=== PATIENT | female | born 1975 | race Caucasian/White ===

== ENCOUNTER 2024-01-14 17:52 | Outpatient (REF) | payer OTHER, SELFPAY ==
[2024-01-15 23:59] LABS: C. trachomatis RNA TMA NOT DETECTED (NOT DETECTED); N. gonorrhoeae RNA TMA NOT DETECTED (NOT DETECTED)
[2024-01-20 20:28] LABS: C. trachomatis RNA TMA NOT DETECTED (NOT DETECTED); N. gonorrhoeae RNA TMA NOT DETECTED (NOT DETECTED); Trichomonas (NAAT) NOT DETECTED (NOT DETECTED)
[2024-01-21 03:29] LABS: HPV mRNA E6/E7 rflx Not Detected (Not Detected)
== END 2024-01-14 17:53 | disposition home or self-care (01) ==
LOC: HO.HHCLNP 17:52
PROVIDERS: Visit Provider Family Medicine
DX: N95.0 Postmenopausal bleeding (principal)
CPT/HCPCS: 36415; 81513; 87491; 87591; 87624; 87661; 88142

== ENCOUNTER 2024-02-10 10:53 | Outpatient (AMB) | payer OTHER, SELFPAY ==
[2024-02-10 10:33] VITALS: BP 130/90; PULSE 84; O2SAT 97; BMI 29.3
--- NOTE | 2024-02-10 10:33 | HO.NEPHOV_ITS ---
Vital Signs 02/10/24 10:33 Height 5 ft 2 in Weight 160 lb BMI 29.3 BP 130/90 H Blood Pressure Location Rt brachial Position Sitting Pulse 84 Pulse Source Pulse Oximeter Pulse Oximetry (%) 97 Oxygen Delivery Method Room Air Intake Visit Reasons: CKD/ Confirmed Intellectual Property Lawyer Required: No Accompanied by: Self / Same As Patient Allergies morphine [Morphine] Allergy (Unknown, Verified 02/10/24 10:37) ITCH POWDER IN GLOVES Allergy (Unknown, Uncoded 07/06/20 17:51) HIVES HPI Comments Details: 48-year-old woman referred for renal evaluation. Recently she had flank pain and was diagnosed with UTI. She was given antibiotics but she did not take the medication because the pill was too big. She had a ultrasonogram at [facility] recently. She is history of nephrolithiasis she has had at least 3 stones. She would undergone workup for nephrolithiasis. She used to drink about 2 L of Coke every day. She is recently cut back. She smokes marijuana nightly. No specific complaints today. No dysuria urgency. No hematuria. No nausea or vomiting. No shortness of breath. No edema no rash. All systems were reviewed [facility], [facility] Surgical History H/O rhinoplasty (~08/2022) Social History (Updated 02/10/24 @ 10:38 by Heather Manuel) Patient Tobacco Use Status: Never used Tobacco Substance Use Type: Marijuana Physical Exam Vital Signs: Last Vital Signs Pulse 84 02/10/24 10:33 BP 130/90 H 02/10/24 10:33 Pulse Ox 97 02/10/24 10:33 Oxygen Delivery Method Room Air 02/10/24 10:33 BMI result Body Mass Index 29.3 Const General: comfortable Nutritional Appearance: well nourished Orientation/consciousness: patient oriented x3 HEENT Head: No normal to inspection Mouth: moist mucous membranes Neck Neck: Yes supple and Yes no JVD Resp Auscultation: clear to auscultation bilaterally, no rales and rub present Cardio Jugular venous distension: no JVD Palpation: no palpable S3 and no palpable S4 Heart sounds: no rubs GI Palpation (GI): Soft to palpation and nontender Percussion: No Fluid wave present General: Yes no CVA tenderness Back/Spine/Pelvis Back: no CVA tenderness Skin General skin exam: no rashes or lesions noted Neuro General: patient oriented x3 Extrem General: Yes no pedal edema and No clubbing Results Reviewed Nephrology Results: Hgb 14.0 g/dL (12.0-16.0) 08/11/18 WBC 11.7 X10*3/uL (4.8-10.8) H 08/11/18 Plt Count 213 X10*3/uL (160-400) 08/11/18 Sodium 143 MMOL/L (135-145) 08/11/18 Potassium 5.0 MMOL/L (3.3-5.1) 08/11/18 Chloride 107 MMOL/L (96-108) 08/11/18 BUN 7 MG/DL (9-16) L 08/11/18 Creatinine 0.75 MG/DL (0.5-1.4) 08/11/18 Calcium 9.8 MG/DL (8.4-10.2) 08/11/18 Assessment & Plan Assessment & Plan (1) Nephrolithiasis: Code(s): N20.0 - Calculus of kidney Category: Medical Plan Middle-aged woman with history of nephrolithiasis and recent UTI. Workup initiated further nephrolithiasis including a 24 urine collection. Since the UTI was incompletely treated I will recheck urine culture. She had trace protein by dipstick. We will recheck urinalysis and urine protein creatinine ratio. If she has significant proteinuria we will proceed with further workup. In the meantime encouraged her to increase her fluid intake. She should stay on low-sodium diet. Encouraged to limit or avoid Coke. Orders: Orders Oxalate, 24 Hr Today N20.0 - Calculus of kidney UA and rflx microscopic Today N20.0 - Calculus of kidney Sodium, 24Hr Urine Group Today N20.0 - Calculus of kidney Creatinine, 24 Hr Group Today N20.0 - Calculus of kidney Calcium, 24 Hr Ur Today N20.0 - Calculus of kidney Citric Acid 24hr Urine Today N20.0 - Calculus of kidney Uric Acid, 24Hr Urine Group Today N20.0 - Calculus of kidney Urine Culture Today N20.0 - Calculus of kidney Coding Level of Care Code New Pt Level 4 (56908) Diagnoses Nephrolithiasis N20.0
--- OUTSIDE RECORDS SUMMARY | 2024-02-10 10:54 | XMS_ITS | Continuity of Care Document ---
Author Organization [facility] See farhana Address [address] [place] [address] [address] [place] [address]- Care Team Providers Care Grips Name Role Phone Leila Osman MD Primary Care Physician [phone] Encounter [facility] [place] Date(s): 09/14/19 - 12/19/19 [facility] [address] [place] [address]- [facility] Attending Physician: Papito Griffin MD Referring Physician: Leila Osman MD Allergies, Adverse Reactions, Alerts Substance Reaction Severity Status morphine Active Latex Active Immunizations Not Given Vaccine Date Status Refusal Reason pneumococcal 23-valent vaccine 02/18/14 Not Given Patient Refuses Medications Keflex monohydrate 500 mg oral capsule 1 capsule = 500 mg, By Mouth, Every 12 hours, 0 Refills, Maintenance, 07/22/19 13:11:25 EDT, Capsule Start Date: 07/22/19 Stop Date: 07/27/19 Status: Ordered Lopressor 50 mg oral tablet 50 mg, 1, tablet, By Mouth, 2 times a day, # 60 tablet, Refills 1, Tot. Refills 1, Maintenance, 05/25/16 15:11:07, Route to Pharmacy Electronically, [id number][facility] [id number] Start Date: 05/25/16 Stop Date: 07/24/16 Status: Ordered LORazepam 1 mg oral tablet 1 tablet = 1 mg, By Mouth, 3 times a day, PRN for anxiety, 0 Refills, Maintenance, 05/23/16 20:01:30, Tablet Start Date: 05/23/16 Status: Ordered risperiDONE 3 mg oral tablet 3 mg, 1, tablet, By Mouth, 2 times a day, # 60 tablet, Refills 0, Maintenance, 05/23/16 20:01:10 Start Date: 05/23/16 Status: Ordered sertraline 50 mg oral tablet 1 tablet = 50 mg, By Mouth, Daily, # 30 tablet, 0 Refills, Maintenance, 10/07/19 21:25:00 EST, Tablet Start Date: 10/07/19 Status: Ordered Problem List Condition Effective Dates Status Health Status Inform ant CKD (chronic kidney disease)(Confirmed) Active
--- OUTSIDE RECORDS SUMMARY | 2024-02-10 10:54 | XMS_ITS | Continuity of Care Document ---
Author Organization [facility] See farhana Address [address] [place] [address] [address] [place] [address]- Care Team Providers Care Ups Driver Name Role Phone Leila Osman MD Primary Care Physician [phone] Encounter [facility] [place] Date(s): 10/08/22 - 11/07/22 [facility] [address] [place], [place] [address] Attending Physician: Blanche Escalona Admitting Physician: AdmtrBlanche Referring Physician: Admtr, Ar8 Allergies, Adverse Reactions, Alerts Substance Reaction Severity Status morphine Active Latex Active Immunizations Not Given Vaccine Date Status Refusal Reason pneumococcal 23-valent vaccine 02/18/14 Not Given Patient Refuses Medications albuterol CFC free 90 mcg/inh inhalation aerosol 2, puffs, Inhalation, 4 times a day, PRN, # 75 Gm, Refills 0, Maintenance, 09/16/22 9:51:00 EST, Aerosol Start Date: 09/16/22 Status: Ordered LORazepam 1 mg oral tablet 1 tablet = 1 mg, By Mouth, 3 times a day, PRN for anxiety, 0 Refills, Maintenance, 05/23/16 20:01:30, Tablet Start Date: 05/23/16 Status: Ordered Saline Mist 0.65% nasal spray 2 sprays, Nares, Both, 4 times a day, # 1 each, 3 Refills, Maintenance, 09/18/22 11:21:00 [facility] #[id number], Partial fill upon patient request if the prescription is for a schedule II opioid drug., 2 sprays Nares, Both 4 times a day, 15... Start Date: 09/18/22 Status: Ordered Problem List Condition Confirmation Course Effective Dates Status Health St atus Informant CKD (chronic kidney disease) Confirmed Active Obese class I Confirmed Active Social History Social History Type Response Smoking Status Never (less than 100 in lifetime) entered on: 06/21/20 Sex Implantable Device List Procedure Provider Procedure Date Device Type Site Graft Cartilage Papito Griffin MD 09/18/22 Unknown N ose Device Identifier Serial Number Lot or Batch Number Manufacturing Date Expiration Date Distinct Identification Code MRI Safety Implantable Status Assigning Authority Unknown [id number] Unknown Unknown 12/24/25 Unknown Unknown Active Unknown Patient Care team information Care Team Personnel Name: Sarah Ledezma RN Position: [facility] RN Member Role: Primary Care Nurse Name: Sarah Jaramillo RN Position: [facility] ED RN W/OE and Tasks Member Role: Primary Care Nurse Name: Enma Zamorano RN Position: [facility] RN Member Role: Primary Care Nurse Name: Ivett Myers NP Position: [facility] Associate Professional Member Role: Primary Care Nurse Address: Address: [address] [place] [address]- [place] Name: Olvin Leung DO Position: [facility] Renal MD Member Role: Lifetime Consulting Physician Address: Address: [address] [place], [place] [address] [place] [address]- [place] Name: Bell Ortiz RN Position: [facility] SN RN Member Role: Primary Care Nurse Name: Aileen Leija Position: [facility] RN Member Role: Primary Care Nurse Name: Salma Braden RN Position: [facility] RN Member Role: Primary Care Nurse Name: Leila Osman MD Position: [facility] Outreach Member Role: PCP Address: Address: [address] [place] [address]- [place] Name: Stephani Infante RN Position: [facility] Hospital Family Services Manager Member Role: Primary Care Nurse Care Team Related Persons Name: DORI NICK Address: home [address] [place] [address] Name: ROWDY KENYON Address: home [address] [place] [address]
--- OUTSIDE RECORDS SUMMARY | 2024-02-10 10:54 | XMS_ITS | Continuity of Care Document ---
Author Organization [facility] Address [address] [place] [address]- Care Team Providers Care Extension Course Coordinator Name Role Phone Leila Osman MD Primary Care Physician [place] [facility] [place] 10/08/[address] [address]- [facility] Discharge Disposition: A-D/C Walkout Attending Physician: Not on Staff, Attending MD Admitting Physician: Not on Staff, Admitting MD Referring Physician: Not on Staff, Referring MD Allergies, Adverse Reactions, Alerts Substance Reaction [...] Maintenance, 05/25/16 15:11:07, Route to Pharmacy Electronically, [id number], [facility] [id number] Start Date: 05/25/16 Stop Date: 07/24/16 Status: [...] Inform ant CKD (chronic kidney disease)(Confirmed) Active Vital Signs Most recent to oldest [Reference Range]: 1 2 Weight 88.9 kg (10/07/19 9:22 PM) 88.9 kg (10/07/19 9:18 PM) Oxygen Saturation [94-100 %] 100 % (10/07/19 9:18 PM) Pulse Rate [55-90 bpm] 93 bpm *H* (10/07/19 9:18 PM) Blood Pressure [90-138/55-84 mm Hg] 144/ 91mm Hg *H* (10/07/19 9:18 PM) Respiratory Rate [16-30 br/min] 20 br/mi n (10/07/19 9:18 PM) Temperature [96.8-100.4 DegF] 98.2 DegF (10/07/19 9:18 PM) Mode of Delivery (Oxygen) Room air (10/07/19 9:18 PM) Blood pressure sites Arm, left (10/07/19 9:18 PM) Temperature Route Oral (10/07/19 9:18 PM) Dry Weight 88.9 kg (10/07/19 9:22 PM) 88.9 kg (10/07/19 9:18 PM) Weight Obtained Via Standing scale (10/07/19 9:18 PM) Dry Weight Obtained Via Standing scale (10/07/19 9:18 PM)
--- OUTSIDE RECORDS SUMMARY | 2024-02-10 10:54 | XMS_ITS | Continuity of Care Document ---
Author Organization [facility] See [facility] Address [address] [place] [address] [address] [place] [address]- Care Team Providers Care Wire Coating Operator Metal Name Role Phone Leila Osman MD Primary Care Physician Encounter [facility] Date(s): 06/10/22 - 07/10/22 [facility] [address] [place], [place] [address] Allergies, Adverse Reactions, Alerts Substance Reaction Severity Status morphine Active Latex Active Immunizations Not Given Vaccine Date Status Refusal Reason pneumococcal 23-valent vaccine 02/18/14 Not Given Patient Refuses Medications Ambien 5 mg oral tablet 1 tablet = 5 mg, By Mouth, Daily at bedtime, 0 Refills, Maintenance, 05/10/22 11:31:00 EDT, Partialfill upon patient request if the prescription is for a schedule II opioid drug. Start Date: 05/10/22 Status: Ordered LORazepam 1 mg oral tablet 1 tablet = 1 mg, By Mouth, 3 times a day, PRN for anxiety, 0 Refills, Maintenance, 05/23/16 20:01:30, Tablet Start Date: 05/23/16 Status: Ordered sertraline 50 mg oral tablet 1 tablet = 50 mg, By Mouth, Daily, # 30 tablet, 0 Refills, Maintenance, 10/07/19 21:25:00 EST, Tablet Start Date: 10/07/19 Status: Ordered Trazodone By Mouth, 2 times a day, 0 Refills, Maintenance, 08/25/21 6:58:00 EDT, Partial fill upon patient request if the prescription is for a schedule II opioid drug. Start Date: 08/25/21 Status: Ordered Zoloft 25 mg oral tablet 1 tablet = 25 mg, By Mouth, Daily, 0 Refills, Maintenance, 05/10/22 11:31:00 EDT, Partial fill uponpatient request if the prescription is for a schedule II opioid drug. Start Date: 05/10/22 Status: Ordered Problem List Condition Effective Dates Status Health Status Inform ant CKD (chronic kidney disease)(Confirmed) Active Obese class I(Confirmed) Active Social History Social History Type Response Smoking Status Never (less than 100 in lifetime) entered on: 06/21/20 Sex Care Team Personnel Name: Leila Osman MD Address: [address] [place] [address]
--- OUTSIDE RECORDS SUMMARY | 2024-02-10 10:54 | XMS_ITS | Continuity of Care Document ---
Author Organization [facility] See farhana Address [address] [place] [address] [address] [place] [address]- Care Team Providers Care Account Manager Forest Service Name Role Phone Leila Osman MD Primary Care Physician Encounter [facility] Date(s): 08/21/22 - 09/20/22 [facility] [address] [place], [place] [address] Allergies, Adverse Reactions, Alerts Substance Reaction Severity Status morphine Active Latex Active Immunizations Not Given Vaccine Date Status Refusal Reason pneumococcal 23-valent vaccine 02/18/14 Not Given Patient Refuses Medications albuterol CFC free 90 mcg/inh inhalation aerosol 2, puffs, Inhalation, 4 times a day, PRN, # 75 Gm, Refills 0, Maintenance, 09/16/22 9:51:00 EST, Aerosol Start Date: 09/16/22 Status: Ordered Augmentin 875 mg-125 mg oral tablet 1 tablet, By Mouth, Every 12 hours, for 10 days, # 20 tablet, 0 Refills, Acute 09/28/22 11:23:00 EST, 09/18/22 11:23:00 EST, Tablet, [facility] #[id number], Partial fill upon patient request if the prescription is for a schedule II opioid drug.,... Start Date: 09/18/22 Stop Date: 09/28/22 Status: Ordered ibuprofen 600 mg oral tablet 600 mg, 1, tablet, By Mouth, Every 6 hours, not to exceed 3200 mg/day with food or milk, # 40 tablet, Refills 0, Tot. Refills 0, Acute 09/25/22 17:00:00 EST, 09/18/22 11:22:00 EST, Route to Pharmacy Electronically, [facility] #[id number], [place]... Start Date: 09/18/22 Stop Date: 09/25/22 Status: Ordered LORazepam 1 mg oral tablet 1 tablet = 1 mg, By Mouth, 3 times a day, PRN for anxiety, 0 Refills, Maintenance, 05/23/16 20:01:30, Tablet Start Date: 05/23/16 Status: Ordered oxyCODONE 5 mg oral tablet 5 mg, 1, tablet, By Mouth, Every 6 hours, PRN, # 12 tablet, Refills 0, Tot. Refills 0, Acute 09/25/22 17:00:00 EST, for pain, 09/18/22 11:22:00 EST, Route to Pharmacy Electronically, [facility] #[id number], Partial fill upon patient request if th... Start Date: 09/18/22 Stop Date: 09/25/22 Status: Ordered Saline Mist 0.65% nasal spray 2 sprays, Nares, Both, 4 times a day, # 1 each, 3 Refills, Maintenance, 09/18/22 11:21:00 EST, [facility] #[id number], Partial fill upon patient request if the prescription is for a schedule II opioid drug., 2 sprays Nares, Both 4 times a day, 15... Start Date: 09/18/22 Status: Ordered Tylenol 325 mg oral capsule 2 capsule = 650 mg, By Mouth, Every 6 hours, PRN as needed for fever, not to exceed 4000 mg/day, # 40 capsule, 0 Refills, Acute 09/25/22 17:00:00 EST, 09/18/22 11:23:00 EST, Capsule, [facility] #[id number], Partial fill upon patient request if th... Start Date: 09/18/22 Stop Date: 09/25/22 Status: Ordered Problem List Condition Confirmation Course [...] MRI Safety Implantable Status Assigning Authority Unknown [id number] Unknown Unknown 12/24/25 Unknown Unknown Active Unknown Patient Care team information Care Team Personnel Name: Sarah Ledezma RN Position: [facility] RN Member Role: Primary Care Nurse Name: Sarah Jaramillo RN Position: [facility] ED RN W/OE and Tasks Member Role: Primary Care Nurse Name: Enma Zamorano RN Position: [facility] RN Member Role: Primary Care Nurse Name: Ivett Myers NP Position: [facility] Associate Professional Member Role: Primary Care Nurse Address: Address: [address] [place] [address]- [place] Name: Olvin Leung DO Position: [facility] Renal MD Member Role: Lifetime Consulting Physician Address: Address: [address] [place] [address] [address] [facility] [place] [address]- [place] Name: Bell Ortiz RN Position: [facility] SN RN Member Role: Primary Care Nurse Name: Aileen Leija Position: [facility] RN Member Role: Primary Care Nurse Name: Salma Braden RN Position: [facility] RN Member Role: Primary Care Nurse Name: Leila Osamn MD Position: [facility] Outreach Member Role: PCP Address: Address: [address] [place] [address]- [place] Name: Stephani Infante RN Position: [facility] Hospital Yard Assistant Member Role: Primary Care Nurse Care Team Related Persons Name: DORI NICK Address: home [address] [place] [address] Name: ROWDY KENYON Address: [address] [place] [address]
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
--- OUTSIDE RECORDS SUMMARY | 2024-02-10 10:55 | XMS_ITS | Continuity of Care Document ---
Author Organization [facility] Address [address] [place] [address]- Care Team Providers Care Imaging Analyst Name Role Phone Leila Osman MD Primary Care Physician Encounter [facility] Date(s): 12/28/23 - 12/29/[address] [address]- Discharge Disposition: A-D/C Home Attending Physician: Mando Faustin DO Admitting Physician: Mando Faustin DO Referring Physician: Not on Staff, Referring MD Allergies, Adverse Reactions, Alerts Substance Reaction Severity Status morphine Active Latex Active Medications albuterol CFC free 90 mcg/inh inhalation aerosol 2, puffs, Inhalation, 4 times a day, PRN, # 75 Gm, Refills 0, Maintenance, 09/16/22 9:51:00 EST, Aerosol Start Date: 09/16/22 Status: Ordered LORazepam 1 mg oral tablet 1 tablet = 1 mg, By Mouth, 3 times a day, PRN for anxiety, 0 Refills, Maintenance, 05/23/16 20:01:30, Tablet Start Date: 05/23/16 Status: Ordered Motrin Tablet 600 mg, Tablet, By Mouth, Once, STAT, 12/28/23 21:14:00 EDT, Stop date 12/28/23 21:14:00 EDT Start Date: 12/28/23 Stop Date: 12/28/23 Status: Completed Percocet-5/325 325 mg-5 mg oral tablet 3 tablet, Tablet, By Mouth, On Discharge for 7 days, STAT, 12/29/23 0:14:00 EDT, Stop date :13:00 EDT Start Date: 12/29/23 Stop Date: 12/29/23 Status: Completed Saline Mist 0.65% nasal spray 2 sprays, Nares, Both, 4 times a day, # 1 each, 3 Refills, Maintenance, 09/18/22 11:21:00 [id number], Partial fill upon patient request if the prescription is for a schedule II opioid drug., 2 sprays Nares, Both 4 times a day, 15... Start Date: 09/18/22 Status: Ordered Problem List Condition Confirmation Course Effective Dates Status Health St [facility] Informant CKD (chronic kidney disease) Confirmed Active Results Radiology Reports * Exam Date Time Procedure Performing Provider Status 12/28/23 9:26 PM Knee 1 or 2 Views Left GrodzickMaria T harding ta; Auth (Verified) Notes: (Knee 1 or 2 Views Left) Reason For Exam: Pain RESULT: Knee 1 or 2 Views Left Knee 1 or 2 Views Left Hx of Present Illness: Pt c o L knee pain since this morning. Denies swelling. No hx of dvt. deniestrauma or injuries.; Reason: Pain; Clinical Question(s): Fracture COMPARISON: None. FINDINGS: There is no evidence of acute or healing fracture, dislocation or bone lesion. No arthritic changes. No osteochondral defects or intra-articular loose bodies. No evidence of joint effusion. IMPRESSION: No acute osseous abnormality. WSN: [id number] Ordering Physician: Etta Flood Dictated By: Olvin Cowan MD Dictated Date/Time: 12/28/23 10:00 p Reviewed By: Olvin Cowan MD Signed By: Olvin Cowan MD Signed Date/Time: 12/28/23 10:00 pm Transcribed By: KB Transcribed Date/Time: 12/28/23 10:00 pm Vital Signs Most recent to oldest [Reference Range]: 1 2 3 Height 158 cm (12/29/23 12:36 AM) 158 cm (12/28/23 8:36 PM) Weight 74.8 kg (12/29/23 12:36 AM) 74.8 kg (12/28/23 8:36 PM) Oxygen Saturation [94-100 %] 100 % (12/29/23 12:36 AM) 99 % (12/28/23 8:36 PM) Pulse Rate [55-90 bpm] 64 bpm (12/29/23 12:36 AM) 85 bpm (12/28/23 8:36 PM) Body Mass Index [18.5-24.99 kg/m2] 29.96 kg/m2 *H* (12/29/23 12:36 AM) Blood Pressure [90-138/55-84 mm Hg] 120/92mm Hg (12/29/23 12:36 AM) 121/84mm Hg (12/28/23 8:36 PM) Respiratory Rate [16-30 br/min] 22 br/min (12/29/23 12:36 AM) 22 br/min (12/29/23 12:25 AM) 22 br/min (12/28/23 10:18 PM) Temperature [96.8-100.4 DegF] 97.7 DegF (12/29/23 12:36 AM) 97.1 DegF (12/28/23 8:36 PM) Mode of Delivery (Oxygen) Room air (12/29/23 12:36 AM) Room air (12/28/23 8:36 PM) Blood pressure sites Arm, left (12/29/23 12:36 AM) Arm, left (12/28/23 8:36 PM) Temperature Route Oral (12/29/23 12:36 AM) Temporal (12/28/23 8:36 PM) Dry Weight 74.8 kg (12/29/23 12:36 AM) 74.8 kg (12/28/23 8:36 PM) Dry Weight Obtained Via Standing scale (12/28/23 8:36 PM) Social History Social History Type Response Smoking Status Never (less than 100 in lifetime) entered on: 06/21/20 Sex Implantable Device List Procedure Provider Procedure Date Device Type Site Graft Cartilage Papito Griffin MD 09/18/22 Unknown N ose Device Identifier Serial Number Lot or Batch Number Manufacturing Date Expiration Date Distinct Identification Code MRI Safety Implantable Status Assigning Authority Unknown [id number] Unknown Unknown 12/24/25 Unknown Unknown Active Unknown Patient Care team information Care Team Personnel Name: Sarah Ledezma RN Position: S RN Member Role: Primary Care Nurse Name: Sarah Jaramillo RN Position: [facility] KATHY RN W/OE and Tasks Member Role: Primary Care Nurse Name: Bell Mathur RN Position: [facility] Rad RN Member Role: Primary Care Nurse Name: Ivett Myers NP Position: [facility] Associate Professional Member Role: Primary Care Nurse Address: Address: [address] [place] [address]- [place] Name: Olvin Leung DO Position: [facility] Renal MD Member Role: Lifetime Consulting Physician Address: Address: [address] [facility] [address] [facility] [place] [address]- [place] Name: Aileen Leija Position: [facility] RN Member Role: Primary Care Nurse Name: Salma Braden RN Position: [facility] RN Member Role: Primary Care Nurse Name: Leila Osman MD Position: [facility] Outreach Member Role: PCP Address: Address: [address] [place] [address]- [place] Name: Stephani Infante RN Position: [facility] Television Operator Member Role: Primary Care Nurse Care Team Related Persons Name: DORI NICK Address: home [address] [place] [address] Name: ROWDY KENYON Address: home [address] [place] [address]
--- OUTSIDE RECORDS SUMMARY | 2024-02-10 10:55 | XMS_ITS | Continuity of Care Document ---
Author Organization [facility] Address [address] [place] [address] [address] [place] [address]- Care Team Providers Care Chemical Supervisor Name Role Phone Leila Osman MD Primary Care Physician Encounter [facility] Date(s): 09/17/22 - 01/15/23 [facility] [address] [place], [place] [address] Attending Physician: Papito Griffin MD Allergies, Adverse Reactions, Alerts Substance Reaction [...] 1 each, 3 Refills, Maintenance, 09/18/22 11:21:00 [facility] #[id number], Partial fill upon patient request if the [...] MRI Safety Implantable Status Assigning Authority Unknown [id number] Unknown Unknown 12/24/25 Unknown Unknown Active Unknown Patient Care team information Care Team Personnel Name: Sarah Ledezma RN Position: [facility] RN Member Role: Primary Care Nurse Name: Sarah Jaramillo RN Position: [facility] ED RN W/OE and Tasks Member Role: Primary Care Nurse Name: Bell Mathur RN Position: [facility] Rad RN Member Role: Primary Care Nurse Name: Enma Zamorano RN Position: [facility] RN Member Role: Primary Care Nurse Name: Ivett Myers NP Position: [facility] Associate Professional Member Role: Primary Care Nurse Address: Address: [address] [place] [address]- [place] Name: Olvin Leung DO Position: [facility] Renal MD Member Role: Lifetime Consulting Physician Address: Address: [address] [place] [address] [address] [facility] [place] [address]- [place] Name: Aileen Leija Position: [facility] RN Member Role: Primary Care Nurse Name: Salma Braden RN Position: [facility] RN Member Role: Primary Care Nurse Name: Leila Osman MD Position: [facility] Outreach Member Role: PCP Address: Address: [address] [place] [address]- [place] Name: Stephani Infante RN Position: [facility] Detective Supervisor Member Role: Primary Care Nurse Care Team Related Persons Name: DORI NICK Address: home [address] [place] [address] Name: ROWDY KENYON Address: home [address] [place] [address]
--- OUTSIDE RECORDS SUMMARY | 2024-02-10 10:55 | XMS_ITS | Continuity of Care Document ---
Author Organization [facility] Address [address] [place] [address] [address] [place] [address]- Care Team Providers Care Supervisor Statement Clerks Name Role Phone Leila Osman MD Primary Care Physician [phone] Encounter [facility] Date(s): 05/10/22 - 06/09/22 [facility] [address] [place], [place] [address] Attending Physician: Blanche Escalona Admitting Physician: AdmBlanche stern Referring Physician: Admtr ArHany Allergies, Adverse Reactions, Alerts Substance Reaction Severity [...]
--- OUTSIDE RECORDS SUMMARY | 2024-02-10 10:55 | XMS_ITS | Continuity of Care Document ---
Author Organization [facility] Address [address] [place] [address] [address] [place] [address]- Care Team Providers Care Data Scientist Name Role Phone Leila Osman MD Primary Care Physician Encounter [facility] Date(s): 11/11/22 - 12/11/[address] [place], [place] [address] Allergies, Adverse Reactions, Alerts Substance Reaction Severity [...] 1 each, 3 Refills, Maintenance, 09/18/22 11:21:00 [facility][id number], Partial fill upon patient request if the [...] MRI Safety Implantable Status Assigning Authority Unknown [id number] Unknown Unknown 12/24/25 Unknown Unknown Active Unknown Patient Care team information Care Team Personnel Name: Sarah Ledezma RN Position: [facility] RN Member Role: Primary Care Nurse Name: Sarah Jaramillo RN Position: [facility] ED RN W/OE and Tasks Member Role: Primary Care Nurse Name: Enma Zamorano RN Position: [facility] RN Member Role: Primary Care Nurse Name: Ivett Myers NP Position: [facility] Associate Professional Member Role: Primary Care Nurse Address: Address: [address] [place] [address]- [place] Name: Olvin Leung DO Position: [facility] Renal MD Member Role: Lifetime Consulting Physician Address: Address: [address] [place], [place] [address] [place] [address]- Name: Bell Ortiz RN Position: [facility] SN RN Member Role: Primary Care Nurse Name: Aileen Leija Position: [facility] RN Member Role: Primary Care Nurse Name: Salma Braden RN Position: [facility] RN Member Role: Primary Care Nurse Name: Leila Osman MD Position: [facility] Outreach Member Role: PCP Address: Address: [address] [place] [address]- [place] Name: Stephani Infante RN Position: [facility] Bulk Station Agent Member Role: Primary Care Nurse Care Team Related Persons Name: DORI NICK Address: home [address] [place] [address] Name: ROWDY KENYON Address: [address] [place] [address]
--- OUTSIDE RECORDS SUMMARY | 2024-02-10 10:55 | XMS_ITS | Continuity of Care Document ---
Author Organization [facility] Address [address] [place] [address] Dr [address] [place] [address]- Care Team Providers Care Lawn Technician Name Role Phone Leila Osman MD Primary Care Physician Encounter [facility] Date(s): 12/16/22 - 01/15/23 [facility] [address] [place], [place] [address] Attending Physician: Blanche Escalona Admitting Physician: Blanche Escalona Referring Physician: AdmtrBlanche Allergies, Adverse Reactions, Alerts Substance Reaction Severity [...] each, 3 Refills, Maintenance, 09/18/22 11:21:00 EST, [facility] #[id number], Partial fill upon patient request if the [...] MRI Safety Implantable Status Assigning Authority Unknown [id number] Unknown Unknown 12/24/25 Unknown Unknown Active Unknown Patient Care team information Care Team Personnel Name: Sarah Ledezma [facility] RN Member Role: Primary Care Nurse Name: Sarah Jaramillo RN Position: [facility] ED RN W/OE and Tasks Member Role: Primary Care Nurse Name: Bell Mathur RN Position: [facility] Rad RN Member Role: Primary Care Nurse Name: Enma Zamorano RN [facility] RN Member Role: Primary Care Nurse Name: Ivett Myers NP Position: [facility] Associate Professional Member Role: Primary Care Nurse Address: Address: [address] [place] [address]- Name: Olvin Leung DO Position: [facility] Renal MD Member Role: Lifetime Consulting Physician Address: Address: [address] [place] [address] [address] [facility] [place] [address]- Name: Aileen Leija Position[facility] RN Member Role: Primary Care Nurse Name: Salma Braden RN Position[facility] RN Member Role: Primary Care Nurse Name: Leila Osman MD Position: [facility] Outreach Member Role: PCP Address: Address: [address] [place] [address]- [place] Name: Stephani Infante RN Position: [facility] Sailing Master Member Role: Primary Care Nurse Care Team Related Persons Name: DORI NICK Address: [address] [place] [address] Name: ROWDY KENYON Address: [address] [place] [address]
--- OUTSIDE RECORDS SUMMARY | 2024-02-10 10:55 | XMS_ITS | Continuity of Care Document ---
Author Organization [facility] Address [address] [place] [address] [address] [place] [address]- Care Team Providers Care Keg Inspector Name Role Phone Leila Osman MD Primary Care Physician [phone] [place] [facility] [place] 08/05/22 - 09/04/22 [facility] [address] [place] [address]- Allergies, Adverse Reactions, Alerts Substance Reaction Severity [...] Date: 05/10/22 Status: Ordered Problem List Condition Confirmation Course Effective Dates Status Health St [facility] Informant CKD (chronic kidney disease) Confirmed Active Obese class I Confirmed Active Social History Social History Type Response Smoking Status Never (less than 100 in lifetime) entered on: 06/21/20 Sex Patient Care team information Care Team Personnel Name: Sarah Ledezma RN Position: [facility] RN Member Role: Primary Care Nurse Name: Sarah Jaramillo RN Position: [facility] ED RN W/OE and Tasks Member Role: Primary Care Nurse Name: Enma Zamorano RN Position: [facility] RN Member Role: Primary Care Nurse Name: Ivett Myers NP Position: [facility] Associate Professional Member Role: Primary Care Nurse Address: Address: [address] [place] [address]- [place] Name: Olvin Leung DO Position: [facility] Renal MD Member Role: Lifetime Consulting Physician Address: Address: [address] [place], [place] [address] [place] [place] [address]- Name: Bell Ortiz RN Position: [facility] SN RN Member Role: Primary Care Nurse Name: Aileen Leija Position: [facility] RN Member Role: Primary Care Nurse Name: Salma Braden RN Position: [facility] RN Member Role: Primary Care Nurse Name: Leila Osman MD Position: [facility] Outreach Member Role: PCP Address: Address: [address] [place] [address]- [place] Name: Stephani Infante RN Position: [facility] Carpenter [employer]radle [employer] D[employer] Member Role: Primary Care Nurse Care Team Related Persons Name: DORI NICK Address: [address] [place] [address] Name: ROWDY KENYON Address: [address] [place] [address]
--- OUTSIDE RECORDS SUMMARY | 2024-02-10 10:55 | XMS_ITS | Continuity of Care Document ---
Author Organization [facility] Address [address] [place] [address] Dr [address] [place] [address]- Care Team Providers Care Director Business Name Role Phone Leila Osman MD Primary Care Physician Encounter [facility] Date(s): 06/12/22 - 07/12/22 [facility] [address] [place], [place] [address] Allergies, Adverse Reactions, Alerts Substance Reaction [...] Team Personnel Name: Leila Osman MD Address: [address] [place] [address]
--- OUTSIDE RECORDS SUMMARY | 2024-02-10 10:55 | XMS_ITS | Continuity of Care Document ---
Author Organization [facility] ter Address [address] [place] [id number]- Care Team Providers Care Granite Worker Name Role Phone Leila Osman MD Primary Care Physician Encounter [facility] [place] [facility] R [id number] Date(s): 01/18/24 - 01/19/[address] [address]- Encounter Diagnosis Pyelonephritis(Final) - 01/19/24 UTI (urinary tract infection)(Final) - 01/19/24 Discharge Disposition: A-D/C Home Attending Physician: Tracy Allen MD Admitting Physician: Tracy Allen MD Referring Physician: Not on Staff, Referring MD Allergies, Adverse Reactions, Alerts Substance Reaction Severity Status morphine Active Latex Active Medications albuterol CFC free 90 mcg/inh inhalation aerosol 2, puffs, Inhalation, 4 times a day, PRN, # 75 Gm, Refills 0, Maintenance, 09/16/22 9:51:00 EST, Aerosol Start Date: 09/16/22 Status: Ordered ciprofloxacin 500 mg oral tablet 1 tablet = 500 mg, By Mouth, Every 12 hours, for 7 days, # 14 tablet, 0 Refills, Acute 01/26/24 6:44:00 EDT, 01/19/24 6:44:00 EDT, Tablet, [id number], Partial fill upon patient request if the prescription is for a schedule II opioid d... Start Date: 01/19/24 Stop Date: 01/26/24 Status: Ordered LORazepam 1 mg oral tablet 1 tablet = 1 mg, By Mouth, 3 times a day, PRN for anxiety, 0 Refills, Maintenance, 05/23/16 20:01:30, Tablet Start Date: 05/23/16 Status: Ordered Saline Mist 0.65% nasal spray 2 sprays, Nares, Both, 4 times a day, # 1 each, 3 Refills, Maintenance, 09/18/22 11:21:00 [id number], Partial fill upon patient request if the prescription is for a schedule II opioid drug., 2 sprays Nares, Both 4 times a day, 15... Start Date: 09/18/22 Status: Ordered Problem List Condition Confirmation Course Effective Dates Status Health [facility] Informant CKD (chronic kidney disease) Confirmed Active Obese class I Confirmed Active Results Radiology Reports * Exam Date Time Procedure Performing Provider Status 01/19/24 3:[address] Abd/Pelvis W/ IV Contrast Only Lynnette prado , Sugey Pelaez; Desiree (Verified) Notes: (CT Abd/Pelvis W/ IV Contrast Only) Reason For Exam: LLQ abdominal pain;Other: RESULT: CT Abd/Pelvis W/ IV Contrast Only CT Abd/Pelvis W/ IV Contrast Only Hx of Present Illness: constant stabbing L sided abd pain since 6pm. denies n v d fevers. recently started taking tramadol last week for ?torn meniscus L side. no leg complaints. vaginal spotting x1 month - seen by PCP, preg negative, outpatient ultrasound ordered for 02 08; Reason: Other:; LLQ abdominal pain; Clinical Question(s): Diverticulitis; Order Comment: TECHNIQUE: Spiral CT through the abdomen and pelvis with IV contrast formatted in 3 planes. 100 cc of Omnipaque 300 was administered intravenously. This study was performed without oral contrast. Weight-based protocol using automatic tube modulation was used to optimize exposure parameters. CTDIvol Body: 17.60 mGy, DLP Body: 913 mGy*cm. COMPARISON: None. FINDINGS: Pouncer View Findings, Lines and Tubes: None. Visualized Chest: Mild mosaic system of the lung bases could be indicative of small airways disease. No pleural effusion. Normal heart size. No pericardial effusion. Diaphragm: Normal. Liver: Normal morphology. No focal masses. Focal fat in the falciform ligament region. Gallbladder: No CT evidence of gallbladder pathology. Bile ducts: No biliary ductal dilation. Spleen: Normal. Pancreas: Normal. Adrenal glands: Normal right adrenal gland. Nodular, low-density thickening of the left adrenal gland, similar to prior studies, probably representing adenomatoid hyperplasia. Kidneys and ureters: Cortical scarring bilaterally. Small simple cyst in the right kidney upper pole, not requiring any follow-up. No hydroureteronephrosis. No calculi. Minimal urothelial thickening in the left renal pelvis and left proximal ureter suggesting a pyelitis. No patchy hypoenhancement to indicate pyelonephritis. Bladder: Underdistended. Mild wall thickening. No significant surrounding inflammatory changes. Reproductive organs: The uterus is normal. No right adnexal masses. 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 Stomach, small bowel, and large bowel: The stomach is normal. The small bowel is normal in caliber,with no evidence of a bowel obstruction. The rectum is normal. The colon is normal. Appendix: Not seen, but no evidence of appendicitis. Peritoneum and retroperitoneum: No ascites or pneumoperitoneum. No omental or mesenteric lesions. Lymph nodes: No enlarged lymph nodes. Blood vessels: Mild vascular calcifications but no aneurysm. No evidence of venous thrombosis. Abdominal and pelvic wall: Unremarkable. Bones: No acute abnormality. Mild degenerative changes in the spine. IMPRESSION: 1. Minimal left-sided urothelial thickening within the left renal pelvis and proximal ureter could indicate a pyelitis. Mild wall thickening of the bladder could be in part related to under distention or a cystitis. Correlate with urinalysis. 2. 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 Preliminary findings were reported by virtual radiology. Virtual radiology report questioned left-sided hydronephrosis, however I do not appreciate significant collecting system dilation. No significant discrepancy. WSN: [id number] Ordering Physician: Lashay Hoskins Dictated By: Geoffrey Bass MD Dictated Date/Time: 01/19/24 10:21 a Reviewed By: Geoffrey Bass MD Signed By: Geoffrey Bass MD Signed Date/Time: 01/19/24 10:21 am Transcribed By: KB Transcribed Date/Time: 01/19/24 10:11 am Vital Signs Most recent to oldest [Reference Range]: 1 2 Height 155 cm (01/18/24 11:41 PM) Weight 74 kg (01/18/24 11:41 PM) Oxygen Saturation [94-100 %] 98 % (01/19/24 3:12 AM) 97 % (01/18/24 11:41 PM) Pulse Rate [55-90 bpm] 90 bpm (01/19/24 3:12 AM) 93 bpm *H* (01/18/24 11:41 PM) Body Mass Index [18.5-24.99 kg/m2] 30.8 kg/m2 *>HHI* (01/18/24 11:41 PM) Blood Pressure [90-138/55-84 mm Hg] 118/ 78mm Hg (01/19/24 3:12 AM) 120/96mm Hg (01/18/24 11:41 PM) Respiratory Rate [16-30 br/min] 18 br/mi n (01/19/24 3:12 AM) 16 br/min (01/18/24 11:41 PM) Temperature [96.8-100.4 DegF] 97.9 DegF (01/18/24 11:41 PM) Mode of Delivery (Oxygen) Room air (01/19/24 3:12 AM) Room air (01/18/24 11:41 PM) Blood pressure sites Arm, left (01/19/24 3:12 AM) Arm, left (01/18/24 11:41 PM) Temperature Route Oral (01/18/24 11:41 PM) Dry Weight 74 kg (01/18/24 11:41 PM) Weight Obtained Via Standing scale (01/18/24 11:41 PM) Dry Weight Obtained Via Standing scale (01/18/24 11:41 PM) Social History Social History Type Response Smoking Status Never (less than 100 in lifetime) entered on: 06/21/20 Sex Implantable Device List Procedure Provider Procedure Date Device Type Site Graft Cartilage Papito Griffin MD 09/18/22 Unknown N ose Device Identifier Serial Number Lot or Batch Number Manufacturing Date Expiration Date Distinct Identification Code MRI Safety Implantable Status Assigning Authority Unknown [id number] Unknown Unknown 12/24/25 Unknown Unknown Active Unknown Note * Lashay Hoskins MD: PERFORM Event Display: Patient Education Leaflets Authored Date: [id number] Zones Pyelonephritis ?? 448 PYELONEPHRITIS ZONES EVERY DAY Taking Care of Yourself with Pyelonephritis Pyelonephritis is a kidney infection that causes inflammation (swelling) in a kidney. ??The infection may start in a lower place in the urinary tract and travel up the urinary tract to one or both kidneys. ?? EVERY DAY: ??? Take your medicine as directed by the doctor. Complete all antibiotics despite feeling better. ??? Keep an updated medicine list with you. ??? Be sure to make a visit with your doctor/nurse within a few days. ??? Rest often. Slowly increase activities. ??? Drink 8-12 eight ounce glasses of juice, water or milk a day. ??? Pee often.?? Do not hold urine in.?? Girls wear cotton underwear to avoid holding moisture near your urethra. ??? If you are sexually active do not have sex if it hurts. Urinate after having sex. Which Zone are you today? GREEN, YELLOW, or RED? GREEN ZONE ALL CLEAR - This zone is your goal Your symptoms are under control when: ??? You have no pain. ??? You have no fever/temperature greater than 100.4 F???. ??? Your urine is clear. YELLOW ZONE ?? STOP & CALL CAUTION - This zone is a warning If you have one or more, of the following : Call your Doctor/Nurse : ??? You have a fever (100.4 F??? ) after taking antibiotics for 48 hours. ??? You still have pain when urinating or trouble urinating. ??? You have dark, cloudy, blood, or bad smelling urine, pain in your back, sides, or abdomen.?? These could be signs that your infection is coming back. ??? Your skin is itchy, red, swollen or you have a rash.?? This could mean you are allergic to yourmedicine. ??? You have questions about your illness or medicine. RED ZONE EMERGENCY: Speak with a Doctor/Nurse promptly if you have any of the following: (Do not drive yourself) ??? You have fever with shaking chills. ??? Nausea or any other issues taking medication. ??? You have trouble breathing after taking your medication.?? This may mean that you are allergic to your medicine. ? * Lashay Hoskins MD: PERFORM Event Display: Patient Education Leaflets Authored Date: [id number] Kidney Infection (Adult Female) ?? [id number] Kidney Infection (Adult Female) An infection in 1 or both kidneys is called pyelonephritis. It usually happens when bacteria get into the kidney. Rarely it is caused when other germs, such as viruses, fungi, or other disease-causing organisms get into the kidney. The bacteria or other disease-causing organisms can enter the kidneys from the bladder or blood traveling from other parts of the body. A kidney infection can become serious. It can cause severe illness, scarring of the kidneys, or kidney failure if not treated correctly. Common causes for this problem include: ??? Not keeping the genital area clean and dry, which promotes the growth of bacteria ??? Wiping back to front. This drags bacteria from the rectum toward the urinary opening (urethra). ??? Wearing tight pants or underwear. This lets moisture build up in the genital area, which helps bacteria grow.??? Holding pee (urine) in for long periods of time ??? Dehydration ??? Urinary tract infections ??? Blockages of pee draining from the kidney, such as a kidney stone Kidney infections can cause symptoms similar to a bladder infection. Symptoms include: ??? Pain or burning feeling when peeing ??? Having to pee more often than normal ??? Blood in the pee (pink or red) ??? Belly (abdominal) pain or discomfort, usually in the lower belly ??? Pain in the side or back ??? Pain above the pubic bone ??? Fever or chills ??? Vomiting ??? Loss of appetite Treatment is oral antibiotics. More severe cases are treated with IM (intramuscular) or IV (intravenous) antibiotics. These are started right away and may be changed once urine culture results show the infecting organisms. Treatment helps prevent a more serious kidney infection. Symptoms of kidney i nfections can vary based on your age. Medicines Medicines can help in the treatment of a bladder infection: ??? Take antibiotics exactly as prescribed and until they are used up, even if you feel better. It's important to finish them to make sure the infection is gone. ??? Unless another medicine was prescribed, you can use xlei-yst-nokcbmd medicines for pain, fever, or discomfort. If you have chronic liver of kidney disease, talk with your [facility] provider before using these medicines. Also talk with your provider if you've ever had a stomach ulcer or digestive bleeding. Or if you are taking blood thinners. ?? Home care Here are some general care guidelines: ??? Stay home from work or school. Rest in bed until your fever breaks and you are feeling better, or as advised by your healthcare provider. ??? Drink lots of fluid unless you must restrict fluids for other medical reasons. This will force the medicine into your urinary system and flush the bacteria out of your body. Ask your provider how much you should drink. ??? Don't have sex until you have f inished all of your medicine and your symptoms are gone. ??? Don't have??caffeine, alcohol, or spicy foods. These foods may irritate the kidneys and bladder. ??? Don't take bubble baths. Sensitivity to the chemicals in bubble baths can irritate the urethra. ??? Make sure you wipe from front to backafter using the toilet. ??? Wear loose clothes and cotton underwear. Prevention These self-care steps can help prevent future infections: ??? Drink plenty of fluids to prevent dehydration and flush out the bladder. Do this unless you must restrict fluids for other health reasons, or your healthcare provider told you not to. ??? Make sure you wipe from front to back after usingthe toilet. ??? Pee more often. Don't try to hold pee in for a long time. ??? Don't wear tight-fitti ng pants and underwear. ??? Improve your diet to prevent constipation. Eat more fruits, vegetables,and fiber. Eat less junk and fatty foods. Constipation can make a urinary tract infection more likely. Talk with your healthcare provider if you have trouble with bowel movements. ??? Pee right aftersex to flush out the bladder. ?? Follow-up care Follow up with your healthcare provider, or as advised. Additional testing may be needed to make sure the infection has cleared. Close follow-up and further testing is very important to find the cause and to prevent future infections. If a urine culture was done, you will be contacted if your treatment needs to be changed. If directed, you may call to find out the results. If you had an X-ray, CT scan, or other diagnostic test, you will be told of any new findings that may affect your care. Call 911 Call 911 if any of the following occur: ??? Trouble breathing ??? Fainting or loss of consciousness??? Fast or very slow heart rate ??? Weakness, dizziness, or fainting ??? Trouble waking up or confusion ?? When to get medical care Call your healthcare provider right away if any of these occur: ??? Fever 100.4??F (38??C) or higher, or as advised by your provider ??? Not feeling better or symptoms get worse 1 to 2 days after starting antibiotics ??? Any symptom that lasts after 3 days of treatment ??? More pain in the stomach,back, side, or groin area ??? Repeated vomiting ??? Not able to take prescribed medicine due to nausea or another reason ??? Bloody, dark-colored, or bad- smelling pee ??? Trouble peeing or peeing less than normal ??? No pee for 8 hours, no tears when crying, confusion, sunken eyes, or dry mouth ?? Last Reviewed Date: 2022 ?? [id number] The [employer]. All rights reserved. This information is not intended as a substitute for professional medical care. Always follow your healthcare professional's instructions. ?? Patient Care team information Care Team Personnel Name: Sarah Ledezma RN Position: [facility] RN Member Role: Primary Care Nurse Name: Sarah Jaramillo RN Position: [facility] ED RN W/OE and Tasks Member Role: Primary Care Nurse Name: Bell Mathur RN Position: [facility] Rad RN Member Role: Primary Care Nurse Name: Ivett Myers NP Position: [facility] Associate Professional Member Role: Primary Care Nurse Address: Address: [address] [place] [address]- Name: Olvin Leung DO Position: [facility] Renal MD Member Role: Lifetime Consulting Physician Address: Address: [address] [place] [address] [address] [facility] [place] [address]- Name: Aileen Leija Position: [facility] RN Member Role: Primary Care Nurse Name: Salma rBaden RN Position: [facility] RN Member Role: Primary Care Nurse Name: Leila Osman MD Position: [facility] Outreach Member Role: PCP Address: Address: [address] [place] [address]- Name: Stephani Infante RN Position: [facility] Hospital Vat Tender Member Role: Primary Care Nurse Care Team Related Persons Name: DORI NICK Address: home [address] [place] [address] Name: ROWDY KENYON Address: home [address] [place] [address]
--- OUTSIDE RECORDS SUMMARY | 2024-02-10 10:55 | XMS_ITS | Continuity of Care Document ---
Author Organization [facility] Address [address] [place] [address]- Care Team Providers Care Stuffer Name Role Phone Leila Osman MD Primary Care Physician Encounter [facility] Date(s): 08/25/21 - 08/25/[address] [address]- Discharge Disposition: A-D/C Home Attending Physician: Scooter Tompkins MD Admitting Physician: Scooter Tompkins MD Referring Physician: Not on Staff, Referring MD Allergies, Adverse Reactions, Alerts Substance Reaction Severity Status morphine Active Latex Active Immunizations Not Given Vaccine Date Status Refusal Reason pneumococcal 23-valent vaccine 02/18/14 Not Given Patient Refuses Medications ibuprofen 600 mg oral tablet 600 mg, 1, tablet, By Mouth, Every 6 hours, PRN, # 16 tablet, Refills 0, Tot. Refills 0, Acute 09/01/21 7:29:00 EST, Pain , Moderate, 08/25/21 7:29:00 EDT, Route to Pharmacy Electronically, [facility]/pharmacy #[id number], Partial fill upon patient request if the... Start Date: 08/25/21 Stop Date: 09/01/21 Status: Ordered LORazepam 1 mg oral tablet [...] opioid drug. Start Date: 08/25/21 Status: Ordered Problem List Condition Effective Dates Status Health Status Inform ant CKD (chronic kidney disease)(Confirmed) Active Results Radiology Reports * Exam Date Time Procedure Performing Provider Status 08/25/21 7:14 AM Wrist Comp Min 3 Views Right Arti Osullivan; Auth (Verified) Notes: (Wrist Comp Min 3 Views Right) Reason For Exam: Pain RESULT: Wrist Comp Min 3 Views Right Wrist Comp Min 3 Views Right Hx of Present Illness: pt reports she was using her right arm to help herself reposition in bed andsince then her wrist hurts. No swelling noted. CMS intact; Reason: Pain; Clinical Question(s): Fracture COMPARISON: None. FINDINGS: No fracture or dislocation. No arthritic change. Normal carpal configuration. Intact radial and ulnar styloid processes. There is mild atherosclerotic calcification along the radial artery. IMPRESSION: Unremarkable. WSN: [id number] Ordering Physician: Krista Alejo Dictated By: Dandre Gupta MD Dictated Date/Time: 08/25/21 8:07 am Reviewed By: Dandre Gupta MD Signed By: Dandre Gupta MD Signed Date/Time: 08/25/21 8:07 am Transcribed By: KB Transcribed Date/Time: 08/25/21 8:06 am Vital Signs Most recent to oldest [Reference Range]: 1 2 Height 158 cm (08/25/21 6:56 AM) 158 cm (08/25/21 6:53 AM) Weight 88.5 kg (08/25/21 6:56 AM) 88.5 kg (08/25/21 6:53 AM) Oxygen Saturation [94-100 %] 98 % (08/25/21 6:53 AM) Pulse Rate [55-90 bpm] 78 bpm (08/25/21 6:53 AM) Body Mass Index [18.5-24.99] 35.45 *>HHI* (08/25/21 6:53 AM) Blood Pressure [90-138/55-84 mm Hg] 150/ 100mm Hg *H* (08/25/21 6:53 AM) Respiratory Rate [16-30 br/min] 18 br/mi n (08/25/21 6:53 AM) Temperature [96.8-100.4 DegF] 97.8 DegF (08/25/21 6:53 AM) Mode of Delivery (Oxygen) Room air (08/25/21 6:53 AM) Blood pressure sites Arm, left (08/25/21 6:53 AM) Temperature Route Oral (08/25/21 6:53 AM) Dry Weight 88.5 kg (08/25/21 6:56 AM) 88.5 kg (08/25/21 6:53 AM) Weight Obtained Via Standing scale (08/25/21 6:53 AM) Social History Social History Type Response Smoking Status Never (less than 100 in lifetime) entered on: 06/21/20 Sex
--- OUTSIDE RECORDS SUMMARY | 2024-02-10 10:55 | XMS_ITS | Continuity of Care Document ---
Author Organization [facility] Address [address] [place] [address] [address] [place] [address]- Care Team Providers Care Hand Shoes Sewer Name Role Phone Leila Osman MD Primary Care Physician Encounter [facility] [place] Date(s): 05/10/22 - 05/17/22 [facility] [address] [place], [place] [address] Attending Physician: Papito Griffin MD Referring Physician: [...] kidney disease)(Confirmed) Active Obese class I(Confirmed) Active Vital Signs Most recent to oldest [Reference Range]: 1 Height 158 cm (05/10/22 11:29 AM) Weight 84.54 kg (05/10/22 11:29 AM) Body Mass Index [18.5-24.99] 33.86 *>HHI* (05/10/22 11:29 AM) Temperature [96.8-100.4 DegF] 98.6 DegF (05/10/22 11:29 AM) Temperature Route Temporal (05/10/22 11:29 AM) Weight Obtained Via Standing scale (05/10/22 11:29 AM) Social History Social History Type Response Smoking Status Never (less than 100 in lifetime) entered on: 06/21/20 Sex
--- OUTSIDE RECORDS SUMMARY | 2024-02-10 10:55 | XMS_ITS | Continuity of Care Document ---
Author Organization [facility] See farhana Address [address] [place] [address] [address] [place] [address]- Care Team Providers Care Cement Mason Maintenance Name Role Phone Leila Osman MD Primary Care Physician Encounter [facility] Date(s): 10/08/22 - 10/15/22 [facility] [address] [place], [place] [address] Attending Physician: Johnson ECHEVERRIA, Anisha Gilmore Allergies, Adverse Reactions, Alerts Substance Reaction Severity [...] 1 each, 3 Refills, Maintenance, 09/18/22 11:21:00 [facility] #[id number], Partial fill upon patient request if the prescription is for a schedule II opioid drug., 2 sprays Nares, Both 4 times a day, 15... Start Date: 09/18/22 Status: Ordered Problem List Condition Confirmation Course Effective Dates Status Health St atus Informant CKD (chronic kidney disease) Confirmed Active Obese class I Confirmed Active Vital Signs Most recent to oldest [Reference Range]: 1 Height 157.48 cm (10/08/22 9:55 AM) Temperature [96.8-100.4 DegF] 96.8 DegF (10/08/22 9:55 AM) Temperature Route Temporal (10/08/22 9:55 AM) Social History Social History Type Response Smoking Status Never (less than 100 in lifetime) entered on: 06/21/20 Sex Implantable Device List Procedure Provider Procedure Date Device Type Site Graft Cartilage Papito Griffin MD 09/18/22 Unknown N ose Device Identifier Serial Number Lot or Batch Number Manufacturing Date Expiration Date Distinct Identification Code MRI Safety Implantable Status Assigning Authority Unknown [id number] Unknown Unknown 12/24/25 Unknown Unknown Active Unknown Patient Care team information Care Team Personnel Name: Sarah Ledezma RN Position: [facility] RN Member Role: Primary Care Nurse Name: Sarah Jaramillo RN Position: [facility] ED RN W/OE and Tasks Member Role: Primary Care Nurse Name: Enma Zamorano RN Position: [facility] RN Member Role: Primary Care Nurse Name: Lucia SUPERVISOR BONDINGIvett Position: [facility] Associate Professional Member Role: Primary Care Nurse Address: Address: [address] [place] [address]- [place] Name: Olvin Leung DO Position: [facility] Renal MD Member Role: Lifetime Consulting Physician Address: Address: [address] [place], [place] [address] [place] [address]- Name: Bell Ortiz RN Position: [facility] SN RN Member Role: Primary Care Nurse Name: Aileen Leija Position: [facility] RN Member Role: Primary Care Nurse Name: Salma Braden RN Position: [facility] RN Member Role: Primary Care Nurse Name: Leila Osman MD Position: [facility] Outreach Member Role: PCP Address: Address: [address] [place] [address]- [place] Name: Stephani Infante RN Position: [facility] Endless Track Vehicle Mechanic Member Role: Primary Care Nurse Care Team Related Persons Name: DORI NICK Address: home [address] [place] [address] Name: ROWDY KENYON Address: home [address] [place] [address]
--- OUTSIDE RECORDS SUMMARY | 2024-02-10 10:55 | XMS_ITS | Continuity of Care Document ---
Author Organization [facility] ter Address [address] [place] [address]- Care Team Providers Care Degreaser Operator Name Role Phone Leila Osman MD Primary Care Physician [phone] Encounter [facility] Date(s): 09/18/22 - 09/18/[address] [address] Discharge Disposition: A-D/C Home Attending Physician: Papito Griffin MD Admitting Physician: Papito Griffin MD Referring Physician: Papito Griffin MD Allergies, Adverse Reactions, [...] 09/28/22 11:23:00 EST, 09/18/22 11:23:00 EST, Tablet, [facility] #[id number], Partial fill upon patient request if the prescription is for a schedule II opioid drug.,... Start Date: 09/18/22 Stop Date: 09/28/22 Status: Ordered FENTanyl Inj 25 mcg, Injection, IV Push Slowly, Every 5 minutes for 8 doses/times, in PACU ONLY, Hold for: RR less than 8 or over-sedation, PRN for Pain , Moderate, Repeat until Pain Score is less than or equal to 2, Routine, 09/18/22 11:37:00 EST, Stop date Limit... Start Date: 09/18/22 Stop Date: 09/18/22 Status: Discontinued ibuprofen 600 mg oral tablet 600 mg, 1, tablet, By Mouth, Every 6 hours, not to exceed 3200 mg/day with food or milk, # 40 tablet, Refills 0, Tot. Refills 0, Acute 09/25/22 17:00:00 EST, 09/18/22 11:22:00 EST, Route to Pharmacy Electronically, [facility] #[id number], [place]... Start Date: 09/18/22 Stop Date: 09/25/22 [...] 09/18/22 11:22:00 EST, Route to Pharmacy Electronically, [facility] #[id number], Partial fill upon patient request if th... Start Date: 09/18/22 Stop Date: 09/25/22 Status: Ordered Saline Mist 0.65% nasal spray 2 sprays, Nares, Both, 4 times a day, # 1 each, 3 Refills, Maintenance, 09/18/22 11:21:00 EST, [facility] #[id number], Partial fill upon patient request if the [...] 09/25/22 17:00:00 EST, 09/18/22 11:23:00 EST, Capsule, [facility] #[id number], Partial fill upon patient request if th... Start Date: 09/18/22 Stop Date: 09/25/22 Status: Ordered Problem List Condition Confirmation Course Effective Dates Status Health St atus Informant CKD (chronic kidney disease) Confirmed Active Obese class I Confirmed Active Vital Signs Most recent to oldest [Reference Range]: 1 2 3 4 Height 157.48 cm (09/18/22 8:32 AM) 157.48 cm (09/16/22 10:16 AM) Weight 81.6 kg (09/18/22 8:32 AM) 80 kg (09/16/22 10:16 AM) Oxygen Saturation [94-100 %] 99 % (09/18/22 1:45 PM) 99 % (09/18/22 1:30 PM) 100 % (09/18/22 1:15 PM) Pulse Rate [55-90 bpm] 73 bpm (09/18/22 8:32 AM) Body Mass Index [18.5-24.99 kg/m2] 32.9 kg/m2 *>HHI* (09/18/22 8:32 AM) 32.26 kg/m2 *>HHI* (09/16/22 10:16 AM) Blood Pressure [90-138/55-84 mm Hg] 137/88mm Hg (09/18/22 1:30 PM) 141/85mm Hg *H* (09/18/22 1:15 PM) 137/84mm Hg (09/18/22 1:00 PM) Respiratory Rate [16-30 br/min] 23 br/min (09/18/22 1:30 PM) 21 br/min (09/18/22 1:21 PM) 23 br/min (09/18/22 1:00 PM) Temperature [96.8-100.4 DegF] 97.1 DegF (09/18/22 1:00 PM) 97.3 DegF (09/18/22 12:00 PM) 97.4 DegF (09/18/22 8:32 AM) Liters per Minute 6 L/min (09/18/22 1:15 PM) 6 L/min (09/18/22 12:45 PM) 6 L/min (09/18/22 12:00 PM) Mode of Delivery (Oxygen) Room air (09/18/22 1:45 PM) Room air (09/18/22 1:30 PM) Shovel mask (09/18/22 1:15 PM) Shovel mask (09/18/22 1:15 PM) Blood pressure sites Arm, right (09/18/22 1:30 PM) Arm, right (09/18/22 1:15 PM) Arm, right (09/18/22 1:00 PM) Temperature Route Temporal (09/18/22 1:00 PM) Temporal (09/18/22 12:00 PM) Temporal (09/18/22 8:32 AM) Dry Weight 81.6 kg (09/18/22 8:32 AM) 80 kg (09/16/22 10:16 AM) Weight Obtained Via Standing scale (09/18/22 8:32 AM) Patient/family stated (09/16/22 10:16 AM) Dry Weight Obtained Via Standing scale (09/18/22 8:32 AM) Patient/family stated (09/16/22 10:16 AM) Social History Social History Type Response Smoking Status Never (less than 100 in lifetime) entered on: 06/21/20 Sex Implantable Device List Procedure Provider Procedure Date Device Type Site Graft Cartilage Papito Griffin MD 09/18/22 Unknown N ose Device Identifier Serial Number Lot or Batch Number Manufacturing Date Expiration Date Distinct Identification Code MRI Safety Implantable Status Assigning Authority Unknown [id number] Unknown Unknown 12/24/25 Unknown Unknown Active Unknown Note * Summer Cast RN: PERFORM Event Display: Discharge/Transfer Note Hospital Authored Date: [id number] Nursing Discharge Note Entered On: 09/18/2022 14:33 EST Performed On: 09/18/2022 14:33 EST by Summer Cast RN Nursing Discharge Note 2 Discharge Time : 09/18/2022 14:23 EST Discharge Level of Care at Discharge : Home/Prison/Foster Care Patient Left Unit Via : Wheelchair Patient Accompanied Off Unit with : Responsible adult DC Instructions Provided & Signed by Pt : Yes Patient Understands D/C Instructions : Yes Verbalized Understanding of D/C Plan By : Patient Patient Instructions Discharge Signed : Yes Did Pt have Specialty Bed or Wound Vac : No Summer Cast RN - 09/18/2022 14:33 EST * Kazierad RN, Summer: PERFORM Event Display: Patient Education/Instruction Authored Date: [id number] Inpatient Adult Discharge Instructions [address] [address] Name: LEOPOLDO NICK : 1975 Visit: 09/18/2022 07:48:00 Current Date: 09/18/2022 14:17 Account: [id number] Inpatient Adult Discharge Instructions We would like to thank you for allowing us to assist you with your healthcare needs. The following includes patient education materials and information regarding your injury/illness. Our entire staffstrives to provide an excellent experience for our patients and their families. PLEASE ENSURE YOU FOLLOW-UP PER THE INSTRUCTIONS BELOW! ?? YOUR OPINION IS IMPORTANT TO US! Please complete the survey you may receive by mail or email. Your feedback will be used to make improvements to the healthcare experiences of our patients and their families. Surveys are administered by [employer] ?? If further treatment with your primary care physician or another doctor is recommended, it is important for you to keep the appointment. Call your primary care physician or return to the Emergency Department immediately if your condition worsens, fails to improve, or new symptoms develop. If you need to find a doctor, you can call [facility] Compliance 360 for a referral at [phone] or toll free at [phone] ([phone]) or log in to [email or web address].. ?? You can view and manage your care through the patient portal or by using a health care saravanan of your choosing. [employer] is a website that allows you to securely view your medical information including your hospital discharge summary, office visit summaries, medications and follow-up visits. You can also request appointments, renew medications, and request access to your medical information using a health care saravanan of your choosing, or just ask a question. You can enroll at [email or web address] or register during your next office visit. You have been discharged from [facility], Patient Care Unit: [facility]. If you have any questions regarding these instructions after you leave, please call us and we will be happy to assist you. [facility] Your Care Team Attending Physician Papito Griffin MD Discharging Providers Elias MD, Papito Y Reason for Admission LEFT NOSTRIL STENOSIS CSDS Tests Performed Below is a partial list of the tests performed during your hospitalization. You may have had other tests and procedures not included in this list. Please discuss all test results with your provider. Primary Care Provider Jacqui MAZARIEGOS, Leila Foster Advance Directive Health Care Proxy on File Yes - Health Care Proxy No qualifying data available. Discharge Vitals Temperature: 97.1 DegF Height: 157.48 cm Pulse Rate: 73 bpm Weight: 81.6 kg Respiratory Rate: 23 br/min Body Mass Index:??32.9 kg/m2??Critical Systolic Blood Pressure: 137 mm Hg Body surface area: 1.89 Diastolic Blood Pressure:??88 mm Hg??High ?? Oxygen Saturation: 99 % ?? Studies Pending All tests and labs ordered during this hospital stay have been completed unless listed below. Please discuss all pending results with your provider listed above in these instructions. ?? No incomplete studies found What to do next Instructions From Your Doctor Discharge Orders Instructions from your Care Team Can shower but no direct spray to the face or the left ear. Leave nostril stent in place. Can gently clean with qtip any crusting in the stent. Use nasal saline spray as instructed. Can gently clean left ear with qtip and apply bacitracin to the incision site, daily. Follow up as scheduled. Head of bed elevated. Do not sleep on left ear. No strenuous activity. Can wear face mask but should be a tie mask and not wrap around ears. Prescriptions (oxycodone, ibuprofen, tylenol, augmentin, nasal sprays) sent to pharmacy on file. Scheduled Follow-Up Appointments Friday 10:00 AM EST ?? With: Anisha Ornelas NP Where: [facility] Plastic Surgery [address] [place] [address]- Friday 10:20 AM EST ?? With: Papito Griffin MD Where: [facility] [address] [facility] [address] [place] [address]- You Need to Schedule the Following Appointments Follow Up with??Papito Griffin When?? Where: [address] [place] [address] [address] [place] [address]- Business (1) Follow Up with??Leila Osman When??In 0 days Where: [address] [place] [address]- Business (1) Discharge Medications LEOPOLDO NICK :1975 Visit Date:09/18/2022 Medications: Please continue your medications until treatment is completed or stopped by your provider. Medications not listed below should be discontinued. Discuss any questions related to medications with your provider. What How Much When Instructions Next Dose Unchanged Acetaminophen (Tylenol 325 mg oral capsule) 2 capsule Oral Every 6 hours as needed for as needed for fever not to exceed 4000 mg/ day ?? Unchanged Albuterol (albuterol CFC free 90 mcg/ inh inhalation aerosol) 2 puff(s) Inhalation 4 times a day as needed for for wheezing Unchanged Amoxicillin-Clavulanate (Augmentin 875 mg-125 mg oral tablet) 1 tab(s) Oral Every 12 hours Duration: 10 Days Unchanged Ibuprofen (ibuprofen 600 mg oral tablet) 1 tab(s) Oral Every 6 hours not to exceed 3200 mg/ day with food or milk ?? Unchanged Lorazepam (LORazepam 1 mg oral tablet) 1 tab(s) Oral 3 times a day as needed for for anxiety Unchanged Oxycodone (oxyCODONE 5 mg oral tablet) 1 tab(s) Oral Every 6 hours as needed for for pain Unchanged Sodium Chloride Nasal (Saline Mist 0.65% nasal spray) 2 spray(s) Nares, Both 4 times a day Test Results Below is a partial list of the most recent Laboratory test results done prior to this discharge. You may have had other tests and procedures not included in this list. Please discuss all test resultswith your provider. Allergies (NKA means No Known Allergies) Latex morphine Problems Active Problems??(2) CKD (chronic kidney disease)?? Obese class I?? Education Materials Below is the list of Educational Leaflet Providered with your Discharge Instructions. Surgery Medical Daystay Surgical Overnight Discharge Instructions?? Valuables and Belongings I fully understand and agree that [facility] accepts no responsibility for all my personal property including clothing, toilet articles, radios, jewelry, dentures, hearing aids, rings, money, or any other property that is in my possession or is brought to me after admission. I understand certain valuables may be placed in a hospital safe for a short period of time. I understand that the hospital is not liable for loss or damage due to accident, fire, or other natural occurrence while said property is in the safe. I accept full responsibility for any personal property that I keep with me, and will not hold the hospital responsible in case of loss or disappearance. I acknowledge that i have been encouraged to send valuables and belongings home. ?? Review of Valuable and Belonging List: With patient Date for Pt to Sign Valuables/Belongings: 09/18/22 08:32:00 ?? Valuables & Belongings ?? Clothes Electronic devices Jewelry Monetary Items Personal devices Miscellaneous Medications (Valuables) Valuables at Bedside Jacket, Pants, Shirt, Shoes, Undergarments Cell phone ? Glasses ? Valuables Sent Home ? Valuables Sent to Security ? Other Discharge Information ? Pulmonary Rehab Status?? Pulmonary Rehab Discharge Status?? Respiratory Rate: 23 br/min ? Common Emergency Awareness Tips IS IT A STROKE? Act FAST and Check for these signs: FACE Does the face look uneven? ARM Does one arm drift down? SPEECH Does their speech sound strange? TIME Call at any sign of stroke ?? Heart Attack Signs Chest discomfort: Most heart attacks involve discomfort in the center of the chest and lasts more than a few minutes, or goes away and comes back. It can feel like uncomfortable pressure, squeezing, fullness or pain. Discomfort in upper body: Symptoms can include pain or discomfort in one or both arms, back, neck, jaw or stomach. Shortness of breath: With or without discomfort. Other signs: Breaking out in a cold sweat, nausea, or lightheaded. Remember, MINUTES DO MATTER. If you experience any of these heart attack warning signs, call to get immediate medical attention! ?? Smoking can increase your chances of developing chronic health problems and can cause harmful effects to other family members in your house. If you smoke, you are strongly encouraged to quit. Please call [facility] Triage Link at [phone] or [phone]) or log in to [email or web address] for referrals to smoking cessation programs. ?? The National Suicide Prevention Hotline is available 12/05 if you or someone you know needs to find a reason to keep living. By calling 3-441-332-awgj (4141) you'll be connected to a skilled, trained counselor at a crisis center in your area. INPATIENT DISCHARGE INSTRUCTIONS SIGNATURE PAGE LEOPOLDO NICK Location:[facility] Registration Date and Time:09/18/2022 07:48 EST Primary Care Physician: Leila Osman MD, I LEOPOLDO NICK, have received the above patient education materials/instructions and have verbalized understanding. If ambulance or transport services are being used I further acknowledge being given a choice of service. ?? If you need to contact me, please call me at this number: . Patient/Pullman Conductor Name: Patient/Pullman Conductor Signature: Relationship to Patient: Witness Name/Signature: Date: * Summer Cast RN: PERFORM, SIGN, VERIFY Event Display: Patient Education Handout Authored Date: * Summer Cast RN: PERFORM Event Display: Patient Education Leaflets Authored Date: Surgery Medical Daystay Surgical Overnight Discharge Instructions ?? 295 Medical Daystay/Surgical Overnight Discharge Instructions ? Since your coordination and judgment may be altered by medication and/or anesthesia, a responsible adult must drive you home from the hospital. ? If you have received medication for pain or sedation while under our care, you should not drive, operate machinery, drink alcohol, or sign any legal documents for 24 hours.?? You should have someone with you at home tonight. ? Remain at home the day of discharge.?? You may be up and about unless otherwise instructed by your physician. ? You may resume your daily prescription medication schedule.?? Any depressant medication should be avoided for 24 hours unless otherwise instructed by your surgeon or anesthesiologist. ? Call your physician for a follow-up appointment.? If you experience unusual or severe pain not relied by your pain medication, excessive bleedingor drainage, persistent nausea and vomiting, excessive swelling or redness, foul odor from incisionsite or fever over 100.6F, you need to call your physician. ? A follow-up phone call by a nurse will be made the day after your procedure.?? If you have stayed with us over night, you will not be receiving a follow-up phone call. ? Nausea and vomiting are a common side effect of prescription pain medication.?? We recommend that pills are not taken on an empty stomach.?? While taking any prescription pain medication you should not drive or drink alcohol. ? Patient Care team information Care Team Personnel Name: Sarah Ledezma RN Position: [facility] RN Member Role: Primary Care Nurse Name: Saarh Jaramillo RN Position: [facility] ED RN W/OE and Tasks Member Role: Primary Care Nurse Name: Enma Zamorano RN Position: [facility] RN Member Role: Primary Care Nurse Name: Ivett Myers NP Position: [facility] Associate Professional Member Role: Primary Care Nurse Address: Address: [address] [place] [address]- [place] Name: Olvin Leung DO Position: [facility] Renal MD Member Role: Lifetime Consulting Physician Address: Address: [address] [facility] [address] [facility] [place] [address]- Name: Bell Ortiz RN Position: [facility] SN RN Member Role: Primary Care Nurse Name: Aileen Leija Position: [facility] RN Member Role: Primary Care Nurse Name: Salma Braden RN Position: [facility] RN Member Role: Primary Care Nurse Name: Leila Osman MD Position: [facility] Outreach Member Role: PCP Address: Address: [address] [place] [address]- [place] Name: Stephani Infante RN Position: [facility] Molecular Modeler Member Role: Primary Care Nurse Care Team Related Persons Name: DORI NICK Address: home [address] [place] [address] Name: ROWDY KENYON Address: home [address] [place] [address]
--- OUTSIDE RECORDS SUMMARY | 2024-02-10 10:55 | XMS_ITS | Continuity of Care Document ---
Author Organization [facility] farhana Address [address] [place] [address] [address] [place] [address]- Care Team Providers Care Administrative Manager Name Role Phone Leila Osman MD Primary Care Physician Encounter [facility] Date(s): 11/26/22 - 12/26/22 [facility] [address] [place] [address]- Attending Physician: Blanche Escalona Admitting Physician: Blanche [...] each, 3 Refills, Maintenance, 09/18/22 11:21:00 EST, [facility] #[id number], Partial fill upon patient request if the [...] MRI Safety Implantable Status Assigning Authority Unknown [id number] Unknown Unknown 12/24/25 Unknown Unknown Active Unknown Patient Care team information Care Team Personnel Name: Sarah Ledezma RN Position: [facility] RN Member Role: Primary Care Nurse Name: Sarah Jaramillo RN Position: [facility] ED RN W/OE and Tasks Member Role: Primary Care Nurse Name: Enma Zamorano RN Position: [facility] RN Member Role: Primary Care Nurse Name: Ivett Myers NP Position: [facility] Associate Professional Member Role: Primary Care Nurse Address: Address: [address] [place] [address]- [place] Name: Olvin Leung DO Position: [facility] Renal MD Member Role: Lifetime Consulting Physician Address: Address: [address] [place], [place] [address] [place] [address]- [place] Name: Bell Ortiz RN Position: [facility] SN RN Member Role: Primary Care Nurse Name: Aileen Leija Position: [facility] RN Member Role: Primary Care Nurse Name: Salma Braden RN Position: [facility] RN Member Role: Primary Care Nurse Name: Leila Osman MD Position: [facility] Outreach Member Role: PCP Address: Address: [address] [place] [address]- [place] Name: Stephani Infante RN Position: [facility] Sheet Rock Hanger Member Role: Primary Care Nurse Care Team Related Persons Name: DORI NICK Address: home [address] [place] [address] Name: ROWDY KENYON Address: [address] [place] [address]
--- OUTSIDE RECORDS SUMMARY | 2024-02-10 10:55 | XMS_ITS | Continuity of Care Document ---
Author Organization [facility] Address [address] [place] [address] [address] [place] [address]- Care Team Providers Care River Rat Name Role Phone Leila Osman MD Primary Care Physician [facility] Date[facility]): 10/28/22 - 11/27/[address] [place], [place] [address] Allergies, Adverse Reactions, Alerts Substance Reaction Severity [...] 1 each, 3 Refills, Maintenance, 09/18/22 11:21:00 [id number], Partial fill upon patient request if the [...] MRI Safety Implantable Status Assigning Authority Unknown [id number] Unknown Unknown 12/24/25 Unknown Unknown Active Unknown Patient Care team information Care Team Personnel Name: Sarah Ledezma RN Position: [facility] RN Member Role: Primary Care Nurse Name: Sarah Jaramillo RN Position: [facility] ED RN W/OE and Tasks Member Role: Primary Care Nurse Name: Enma Zamorano RN Position: [facility] RN Member Role: Primary Care Nurse Name: Ivett Myers NP Position: [facility] Associate Professional Member Role: Primary Care Nurse Address: Address: [address] [place] [address]- Name: Olvin Leung DO Position: [facility] Renal MD Member Role: Lifetime Consulting Physician Address: Address: [address] [place], [place] [address] [place] [address]- Name: Bell Ortiz RN Position: [facility] SN RN Member Role: Primary Care Nurse Name: Aileen Leija Position: [facility] RN Member Role: Primary Care Nurse Name: Salma Braden RN Position: [facility] RN Member Role: Primary Care Nurse Name: Leila Osman MD Position: [facility] Outreach Member Role: PCP Address: Address: [address] [place] [address]- [place] Name: Stephani Infante RN Position: [facility] Fitter Armament Member Role: Primary Care Nurse Care Team Related Persons Name: DORI NICK Address: home [address] [place] [address] Name: ROWDY KENYON Address: [address] [place] [address]
--- OUTSIDE RECORDS SUMMARY | 2024-02-10 10:55 | XMS_ITS | Continuity of Care Document ---
Author Organization [facility] Address [address] [place] [address] [address] [place] [address]- Care Team Providers Care Computer Numerical Control Machinist Name Role Phone Leila Osman MD Primary Care Physician [facility] Date(s): 11/19/19 - 11/29/19 [facility] [address] [place] [address]- [facility] Attending Physician: Blanche Escalona Admitting Physician: AdmtrBlanche [...] Maintenance, 05/25/16 15:11:07, Route to Pharmacy Electronically, [id number], [email or web address] [id number] Start Date: 05/25/16 Stop Date: 07/24/16 Status: [...]
--- OUTSIDE RECORDS SUMMARY | 2024-02-10 10:55 | XMS_ITS | Continuity of Care Document ---
Author Organization [facility] Address [address] [place] [address] [address] [place] [address]- Care Team Providers Care Supervisor Print Line Name Role Phone Leila Osman MD Primary Care Physician [phone] [facility]counter [facility] Date(s): 09/19/22 - 12/26/22 [facility] [address] [place], [place] [address] Attending Physician: Papito Griffin MD Allergies, Adverse [...] 1 each, 3 Refills, Maintenance, 09/18/22 11:21:00 [facility] #[id number], Partial fill upon patient request if the [...] MRI Safety Implantable Status Assigning Authority Unknown [id number] Unknown Unknown 12/24/25 Unknown Unknown Active Unknown Patient Care team information Care Team Personnel Name: Sarah Ledezma RN Position: [facility] RN Member Role: Primary Care Nurse Name: Sarah Jaramillo RN Position: [facility] ED RN W/OE and Tasks Member Role: Primary Care Nurse Name: Enma Zamorano RN Position: [facility] RN Member Role: Primary Care Nurse Name: Ivett Myers NP Position: [facility] Associate Professional Member Role: Primary Care Nurse Address: Address: [address] [place] [address]- Name: Olvin Leung DO Position: [facility] Renal MD Member Role: Lifetime Consulting Physician Address: Address: [address] [place], [place] [address] [place] [address]- Name: Bell Ortiz RN Position: [facility] SN RN Member Role: Primary Care Nurse Name: Aileen Leija Position: [facility] RN Member Role: Primary Care Nurse Name: Salma Braden RN Position: [facility] RN Member Role: Primary Care Nurse Name: Leila Osman MD Position: [facility] Outreach Member Role: PCP Address: Address: [address] [place] [address]- Name: Stephani Infante RN Position: [facility] Program Eligibility Specialist Member Role: Primary Care Nurse Care Team Related Persons Name: DORI NICK Address: [address] [place] [address] Name: ROWDY KENYON Address: home [address] [place] [address]
--- OUTSIDE RECORDS SUMMARY | 2024-02-10 10:55 | XMS_ITS | Continuity of Care Document ---
Author Organization [facility] Address [address] [place] [address] [address] [place] [address]- Care Team Providers Care Light Bulb Replacer Name Role Phone Leila Osman MD Primary Care Physician [facility]s): 09/26/22 - 10/03/22 [facility] [address] [place], [place] [address] Attending Physician: Johnson ECHEVERRIA, Anisha Gilmore Allergies, [...] 1 each, 3 Refills, Maintenance, 09/18/22 11:21:00 [facility] #[id number], Partial fill upon patient request if the [...] oldest [Reference Range]: 1 Height 157.48 cm (09/26/22 9:38 AM) Temperature [96.8-100.4 DegF] 97.3 DegF (09/26/22 9:38 AM) Temperature Route Temporal (09/26/22 9:38 AM) Social History Social History Type Response Smoking Status Never (less than 100 in lifetime) entered on: 06/21/20 Sex Implantable Device List Procedure Provider Procedure Date Device Type Site Graft Cartilage Papito Griffin MD 09/18/22 Unknown N ose Device Identifier Serial Number Lot or Batch Number Manufacturing Date Expiration Date Distinct Identification Code MRI Safety Implantable Status Assigning Authority Unknown [id number] Unknown Unknown 12/24/25 Unknown Unknown Active Unknown Patient Care team information Care Team Personnel Name: Sarah Ledezma RN Position: [facility] RN Member Role: Primary Care Nurse Name: Sarah Jaramillo RN Position: [facility] ED RN W/OE and Tasks Member Role: Primary Care Nurse Name: Enma Zamorano RN Position: [facility] RN Member Role: Primary Care Nurse Name: Lucia LUMBER TRIMMERIvett Position: [facility] Associate Professional Member Role: Primary Care Nurse Address: Address: [address] [place] [address]- [place] Name: Olvin Leung DO Position: [facility] Renal MD Member Role: Lifetime Consulting Physician Address: Address: [address] [place], [place] [address] [place] [address]- Name: Bell Ortiz RN Position: [facility] SN RN Member Role: Primary Care Nurse Name: Aileen Leija Position: [facility] RN Member Role: Primary Care Nurse Name: Salma Braden RN Position: [facility] RN Member Role: Primary Care Nurse Name: Leila Osman MD Position: [facility] Outreach Member Role: PCP Address: Address: [address] [place] [address]- [place] Name: Stephani Infante RN Position: [facility] Newspaper Reporter Member Role: Primary Care Nurse Care Team Related Persons Name: DORI NICK Address: [address] [place] [address] Name: ROWDY KENYON Address: home [address] [place] [address]
== END 2024-02-10 10:56 | disposition home or self-care (01) ==
LOC: HO.HKA 10:53
PROVIDERS: PCP Student in an Organized Health Care Education/Training Program; Referring Provider Student in an Organized Health Care Education/Training Program; Visit Provider Internal Medicine Hypertension Specialist
DX: N20.0 Calculus of kidney (principal)
CPT/HCPCS: 99204

== ENCOUNTER → 2024-02-10 10:53 | Outpatient (BNVA) | payer OTHER, SELFPAY | PROVIDERS: PCP Student in an Organized Health Care Education/Training Program; Referring Provider Student in an Organized Health Care Education/Training Program; Visit Provider Internal Medicine Hypertension Specialist | DX: N20.0 Calculus of kidney (principal) | CPT/HCPCS: 99202 ==

== ENCOUNTER 2024-02-16 15:56 | Outpatient (REF) | payer OTHER, SELFPAY ==
--- NOTE | ~2024-02-16 | US_ITS ---
EXAMINATION: US RETROPERITONEAL LIMITED (RENAL ONLY) CLINICAL INFORMATION: Calculus of kidney. COMPARISON: None available. TECHNIQUE: Real-time imaging of the kidneys. FINDINGS: RIGHT KIDNEY: 10.4 x 4.8 x 5.5 cm (SAG x AP x TRV). The kidney is normal in size, contour, and echogenicity. Renal cortical thickness is normal. No focal parenchymal lesions or hydronephrosis. 4 mm calculus in the upper pole. No hydronephrosis. LEFT KIDNEY: 11.3 x 4.5 x 5.3 cm (SAG x AP x TRV). The kidney is normal in size, contour, and echogenicity. Renal cortical thickness is normal. No focal parenchymal lesions. 3 mm calculus in the lower pole. Mild left hydronephrosis. US/US renal BI IMPRESSION: Bilateral nonobstructing renal calculi. Mild left hydronephrosis.
--- NOTE | ~2024-02-16 | XR_ITS ---
EXAMINATION: XR KNEE, LEFT CLINICAL INFORMATION: Pain in left knee COMPARISON: None available. TECHNIQUE: AP and lateral views of left knee of the left knee. FINDINGS: No fracture or joint effusion. Alignment is anatomic. Joint spaces are maintained. No abnormal soft tissue calcification. XR/XR knee LT 2V IMPRESSION: Normal left knee.
== END 2024-02-16 15:57 | disposition home or self-care (01) ==
LOC: HO.US 15:56
PROVIDERS: PCP Student in an Organized Health Care Education/Training Program; Visit Provider Internal Medicine Hypertension Specialist
DX: N20.0 Calculus of kidney (principal); M25.562 Pain in left knee
CPT/HCPCS: 73560; 76775

== ENCOUNTER 2025-03-22 13:51 | Outpatient (REF) | payer OTHER, SELFPAY ==
--- NOTE | ~2025-03-22 | XR_ITS ---
EXAMINATION: XR CHEST 2 VIEWS HISTORY: rhonchi on physical exam COMPARISON: There are no prior studies available for comparison. FINDINGS: PA and lateral views of the chest are submitted. The lungs are expanded and clear. There is no pleural effusion, pneumothorax, or pulmonary vascular congestion. The heart is normal in size. The bones are intact. XR/XR chest 2V IMPRESSION: Clear lungs. Electronically signed by: Scooter Delong MD 03/22/2025 02:08 PM EDT
--- OUTSIDE RECORDS SUMMARY | 2025-03-22 15:35 | XMS_ITS | Encounter Summary ---
Author Organization [employer] Address [address] [place] [address] Care Team Providers Care Broaching Machine Operator Name Role Phone Leila Osman MD Primary Care Provider [phone] Reason for Visit * Reason Onset Date Comments ER Follow-up 12/29/2023 Encounter Details Date Type Department Care Team (Late st Contact Info) Description 12/29/2023 Telephone [facility] [address] [place] [address] Leila Osman MD [address] [place], [place] [id number] ER Follow-up Social History Tobacco Use Types Packs/Day Years Used Date Smoking Tobacco: Never Assessed Comments Unknown Sex and Gender Information Value Date Recorded Sex Assigned at Female 08/19/2022 10:20 AM EDT Legal Sex Female 10:20 AM EDT Gender Identity Female 08/19/2022 10:20 AM EDT Sexual Orientation Straight 08/19/2022 10 :20 AM EDT documented as of this encounter Miscellaneous Notes * Telephone Encounter - Wing Prachi RN - 12/30/2023 11:24 AM EDT Tc to pt regarding ED visit on 12/27. Pt reports left leg is still in a lot of pain and that the pain is giving me anxiety. Stated that ED gave some pain meds. Pt also states that the pain is like being constantly stabbed with an ice pick. Scheduled pt with Dr. Burger on 12/30 for 3 pm. Pt verbalizes understanding and agreement with plan. * Telephone Encounter - Arthur Hines - 12/29/2023 10:01 AM EDT Patient calling to report ED visit on : Date: 12/28/23 Hospital: [facility] Seen for: Geronimo Art Patient advised will forward to team nurse for follow up documented in this encounter Plan of Treatment Upcoming Encounters Date Type Department Care Team (Late st Contact Info) Description 05/10/2025 9:30 AM EDT Office Visit [facility] [address] [place] [address] Jennifer Guerrero MD [address] [place] [address] documented as of this encounter Visit Diagnoses Not on filedocumented in this encounter Care Teams Broaching Machine Operator Relationship Specialty Start Date End Date Leila Osman MD [address] [place] [address] PCP - General Family Medicine 10/27/13 documented as of this encounter
== END 2025-03-22 13:52 | disposition home or self-care (01) ==
LOC: HO.HHCX 13:51
PROVIDERS: Visit Provider Internal Medicine
DX: J40 Bronchitis, not specified as acute or chronic (principal)
CPT/HCPCS: 71046

== ENCOUNTER → 2025-03-22 13:52 | Outpatient (BNV) | payer OTHER, SELFPAY | PROVIDERS: Visit Provider Radiology Diagnostic Radiology | DX: R09.89 Other specified symptoms and signs involving the circulatory and respiratory systems (principal) | CPT/HCPCS: 71046 ==

== ENCOUNTER 2025-08-22 14:42 | Outpatient (REF) | payer OTHER, SELFPAY | END 2025-08-22 14:43 | disposition home or self-care (01) | LOC: HO.CHCLNP 14:42 | PROVIDERS: PCP Internal Medicine; Visit Provider Internal Medicine | DX: L02.411 Cutaneous abscess of right axilla (principal) | CPT/HCPCS: 87070; 87077; 87186; 87205 ==